=== PATIENT | female | born 1960 | race Caucasian/White ===

== ENCOUNTER 2019-01-02 21:19 | Observation (INO) ==
[2019-01-03] MEDS ORDERED: ZOFRAN IV PRN (00:18)
[2019-01-03] MEDS ORDERED: NORCO-7.5 PO PRN (00:18)
[2019-01-03] MEDS: NS 1,000 ML IV SCH ×2 (00:45→21:53)
[2019-01-03] MEDS: ZOSYN 3.375 GM in NS 50 ML IV SCH ×4 (00:45→18:34)
[2019-01-03] MEDS: XANAX PO PRN ×2 (00:51→21:59)
[2019-01-03] MEDS: COLACE PO SCH ×2 (10:33→21:54)
[2019-01-03] MEDS: MIRALAX PO SCH (10:34)
--- NOTE | 2019-01-03 15:13 | HISTORY AND PHYSICAL ---
PRIMARY CARE PHYSICIAN: Dr. Vance Thurman CHIEF COMPLAINT: Intractable abdominal pain. HISTORY OF PRESENT ILLNESS: A 58-year-old white female with a complicated past medical history presents for evaluation of above mentioned symptoms. Current history of present illness began approximately 1 week ago. At that time, the patient states that she developed profound dizziness with associated nausea. The patient immediately began Zofran secondary to her intractable nausea with some improvement. Subsequently, the patient complained of abdominal discomfort and constipation. The patient suspected this was Zosyn associated. She treated this symptomatically. On Wednesday, the patient developed intractable abdominal discomfort. She took Milk of Magnesia followed by Fleet's enema. Unfortunately, this proved only minimally effective. She did however rapidly develop intractable nausea and vomiting. Throughout the rest of the evening, she was unable to eat. She continued to have lower abdominal cramping. On Wednesday, the patient's condition remained largely unchanged. She was unable to eat adequate diet. She did however achieve improvement in her nausea. Symptoms persisted on Wednesday. Today, the patient awoke and passed what she described as a "normal" stool. Throughout the day, she has continued to have pain, however, this is slightly improved from the weekend. She presented to my office for further evaluation and management. Upon arrival, a full evaluation was pursued. Examination suggested bilateral lower quadrant pain with guarding but no rebound. The patient was referred immediately to the hospital for CT scan evaluation. CT scan returned suggesting diverticulitis, an ovarian cyst versus abscess was identified in the adnexa. Because of the intractable nature of the patient's symptoms as well as the concerning CAT scan, the patient will be admitted to the hospital for full evaluation and management. Of note, the patient has had chills but no fevers. She denies hematochezia, melena, dysuria, hematuria or pyuria. PAST MEDICAL HISTORY: 1. Abnormal electrocardiogram with nonspecific T-wave abnormalities in the lateral leads. 2. Allergic rhinitis. 3. Anxiety. 4. History of cervical dysplasia status post simple vaginectomy in 2005. 5. Cervical spine pain status post diskectomy in 2005. 6. Migraine headaches. 7. Depression. 8. Onychomycosis. 9. Metabolic syndrome. 10. Lower extremity edema. 11. Reflux disease. 12. Hypertriglyceridemia. 13. Excessive daytime somnolence. 14. Hyperlipidemia. 15. Low HDL. 16. Menorrhagia status post CLARIBEL in 2001. 17. Obstructive sleep apnea. 18. Perforated nasal septum. 19. Overweight. 20. Elevated blood pressure without the diagnosis of hypertension. CURRENT MEDICATIONS: 1. Adderall 10 mg twice daily. 2. Alprazolam 0.5 mg twice daily as needed. 3. Claritin 10 mg daily as needed. 4. Flexeril 10 mg 1/2 to 1 tablet 3 times daily as needed. 5. Dyazide 37.5/25 daily as needed. 6. Fenofibrate 160 mg at bedtime. 7. Meloxicam 15 mg daily as needed. 8. Omeprazole 40 mg daily as needed. ALLERGIES: The patient answered no known drug allergies. SOCIAL HISTORY: The patient denies tobacco, alcohol, or illicit drug use. She works for [employer] in [place]. She enjoys movies. She does not exercise routinely. FAMILY HISTORY: The patient's father passed at age 74 secondary to complications of lung cancer. He had a history of an acute myocardial infarction at age 67 and coronary artery bypass grafting at age 69. The patient's mother passed at age 65 with a sudden cardiac . She had a history of diabetes, hypertension, hyperlipidemia, and coronary artery disease. REVIEW OF SYSTEMS: A 12 point Review of Systems was performed. Pertinent positives and negatives noted in history of present illness. PHYSICAL EXAMINATION: VITAL SIGNS: Temperature 98.9, heart rate 94, respirations 16, blood pressure 120/82. GENERAL: A well-developed, well-nourished in no acute distress. HEENT: Normocephalic and atraumatic. Pupils equal round and reactive to light. Extraocular muscles are intact. Sclerae anicteric. [place] conjunctiva. Oral and nasopharynx clear without exudate. NECK: Supple. No lymphadenopathy. No thyromegaly. No bruits auscultated. CARDIOVASCULAR: Regular rate and rhythm. No significant murmurs, rubs or gallops. PULMONARY: Clear to auscultation bilaterally. ABDOMEN: Soft. Diffusely tender more so in bilateral lower quadrants and suprapubic region. Positive guarding with no rebound. Positive bowel sounds. EXTREMITIES: Moves all extremities well. No significant clubbing, cyanosis or edema. NEUROLOGIC: Cranial nerves II through XII grossly intact. Motor and sensory are grossly intact. PSYCHIATRIC: Appropriate. LABORATORY DATA: White blood cell count 11.89, hemoglobin 14.8, hematocrit 45.3, platelet count 207,000. Sodium 139, potassium 4.5, chloride 102, bicarb 24, BUN 12, creatinine 0.9, glucose 109, calcium 9.6. Total bilirubin 0.37. Total protein 7.0, albumin 3.6, alkaline phosphatase 62, AST 18, ALT 22. Preliminary CT scan suggests diverticulitis and indeterminate fluid collections in the adnexa. This likely represents an ovarian cyst, however, diverticular abscess cannot be ruled out. ASSESSMENT AND PLAN: A 58-year-old white female with a Past Medical History as noted. She presents for evaluation of intractable abdominal pain. Because of the severity of the patient's symptoms, the patient was referred for CT scan evaluation confirming diverticulitis, question of possible abscess has been made. The patient will be admitted to the hospital for full evaluation and management of this condition. 1. Admit to General Medicine. 2. Acute diverticulitis. Cannot rule out associated abscess - We will place the patient as an inpatient. We will start Zosyn 3.375 q.6 h. We will initiate IV fluids with normal saline 50 mL an hour. We will encourage soft bowel movements with Colace and MiraLAX therapy. Because of the questionable CT scan, a pelvic ultrasound will be pursued tomorrow to help determine between diverticular abscess and ovarian cyst. 3. Intractable nausea and vomiting - The patient's symptoms are slightly improved from the weekend. We will place the patient on a clear liquid diet. We will add as needed Zofran. We will follow this as well. 4. Anxiety - The patient is treated with alprazolam as an outpatient. We will continue this as an inpatient. 5. Hypertriglyceridemia - The patient's fenofibrate has been held. We will plan to initiate this once indicated. 6. Leukocytosis - This is likely the consequence of patient's acute diverticulitis. We will treat with aggressive antibiotic intervention as above. 7. Fluid electrolytes and nutrition - We will monitor electrolytes, normal saline at 50 mL an hour. Clear liquid diet with NPO after midnight. 8. Prophylaxis: The patient will be placed on SCD's. cc: Vance Thurman MD
--- NOTE | 2019-01-03 17:06 | Diag Imaging Result Doc PS360 ---
EXAM: US PELVIC NON-OB COMPLETE HISTORY: Ovarian cyst vs. Diverticular abscess TECHNIQUE: Transvaginal pelvic ultrasound COMPARISON: CT from 01/02/2019 FINDINGS: The uterus is not identified. There is a large cystic area in the right adnexa measuring 10.5 x 7.6 x 8.6 cm. There is also a large cystic area in the left adnexa measuring 6.8 x 4.2 x 7.2 cm. No definite internal debris. IMPRESSION: Large adnexal fluid collections which are nonspecific but may simply represent large ovarian cysts. Electronically signed by Lambert North 01/03/2019 5:04 PM
[2019-01-03] MEDS ORDERED: LOVENOX SUBQ SCH (21:00)
[2019-01-03] MEDS ORDERED: LOFIBRA PO SCH (21:00)
[2019-01-04] MEDS: ZOSYN 3.375 GM in NS 50 ML IV SCH ×4 (01:21→18:27)
[2019-01-04 06:55] LABS: BASO# 0.01 X1000 (0.0-0.2); BASO% 0.2 % (0.0-0.8); EOS# 0.14 X1000 (0.0-0.7); EOS% 3.2 % (0.0-10.0); HEMATOCRIT 37.1 % (37.0-47.0); HEMOGLOBIN 12.2 g/dL (12.0-16.0); LYMPH% 29.3 % (20.5-51.1); MCH 28.6 PG (27-31); MCHC 32.9 g/dL (33-37); MCV 86.9 FL (81-99); MONO# 0.48 X1000 (0.11-0.59); MONO% 10.8 % (1.7-9.3); MPV 11.6 FL (7.4-10.4); NEUT# 2.51 X1000 (1.4-6.5); NEUT% 56.5 % (42.2-75.2); PLT 221 X1000 (130-400); RBC 4.27 XMIL (4.2-5.4); RDW 12.7 % (11.5-14.5); WBC 4.44 X1000 (4.8-10.8)
[2019-01-04 07:24] LABS: AGAP 7; ALB/GLOB RATIO 1.1; ALBUMIN 3.1 g/dL (3.5-5.0); ALKALINE PHOSPHATASE 50 U/L (32-104); BUN 10 mg/dL (8-22); CALCIUM 8.7 mg/dL (8.8-10.2); CHLORIDE 105 mmol/L (98-107); COSMO 283; CREATININE 0.8 mg/dL (0.5-0.9); ESTIMATED GFR > 60; GLUCOSE 140 mg/dL (70-104); GOT 16 U/L (10-30); GPT 22 U/L (10-36); POTASSIUM 3.9 mmol/L (3.5-5.1); SODIUM 141 mmol/L (136-145); TCO2 29 mmol/L (25-35); TOTAL BILIRUBIN 0.49 mg/dL (0.20-1.00); TOTAL PROTEIN 5.8 g/dL (6.3-8.3)
[2019-01-04] MEDS: COLACE PO SCH (08:35)
[2019-01-04] MEDS: MIRALAX PO SCH (08:35)
[2019-01-04] MEDS ORDERED: PRILOSEC PO SCH (09:00)
--- NOTE | 2019-01-04 12:26 | PROGRESS NOTE ---
DATE: 01/02/2019 SUBJECTIVE: Patient was admitted yesterday with intractable abdominal discomfort. CT scan of the abdomen and pelvis confirmed significant inflammation about the sigmoid colon most compatible with acute diverticulitis. There was, however, bilateral simple, bland appearing fluid collections in the adnexal which were described is very large. The patient was started on IV Zosyn therapy. She remained NPO overnight. This morning, upon my arrival, patient states she rested reasonably well. She continued to have some abdominal discomfort. A pelvic ultrasound was performed today. This revealed large adnexal fluid collection which are nonspecific, but may simply represent large ovarian cyst. This evening, patient was fed a liquid diet. The patient has developed an increasing pain associated with eating. She denies fevers, chills, nausea, vomiting, or shortness of breath. OBJECTIVE: T-max 99.0, heart rate 80 to 92, respirations 16 to 18, blood pressure 104 to 126/55 to 87.General: Well nourished, well developed in no acute distress. Cardiovascular: Regular rate and rhythm. No significant murmurs, rubs, or gallops. Pulmonary: Clear to auscultation bilaterally. Abdomen: Soft. Tender in the left lower quadrant and right lower quadrant with guarding but no rebound. Positive bowel sounds. Extremities: Moves all extremities well. No significant clubbing, cyanosis, or edema. Dermatologic: Evaluation reveals no evidence of rash. LABORATORY DATA: None. ASSESSMENT AND PLAN: 1. Acute diverticulitis-On CT scan, patient was noted to have significant inflammation. There is no evidence of definitive abscess formation. As above, we attempted to allow patient to have liquid diet, but patient experienced increasing pain. For now, we will continue symptomatic management. We will continue IV fluids and IV Zosyn therapy. We will monitor her condition closely while hospitalized. Advance diet as tolerated. 2. Intractable nausea and vomiting-Patient has achieved improvement. She has as-needed Zofran ordered. 3. Anxiety-We will continue patient on alprazolam therapy. Symptoms are reasonably controlled. 4. Hypertriglyceridemia-We will resume patient's fenofibrate. We will follow this as well. 5. Leukocytosis. This likely is secondary to her acute diverticulitis. We will recheck labs in the morning. 6. Adnexal fluid collections/cyst-We will plan evaluation by Dr. Ray as an outpatient. 7. Disposition-At this point, patient continues to require retirement care in a hospital setting. We will plan discharge home once appropriate. cc: Vance Thurman MD
[2019-01-04 15:43] VITALS: BP 105/70
[2019-01-04] MEDS: NS 1,000 ML IV SCH (17:41)
--- NOTE | 2019-01-05 17:06 | DISCHARGE SUMMARY ---
ADMISSION DATE: 01/02/2019 DISCHARGE DATE: 01/04/2019 ADMISSION DIAGNOSIS: Intractable abdominal pain. DISCHARGE DIAGNOSES: 1. Acute diverticulitis, improving. 2. Intractable nausea and vomiting, improving. 3. Adnexal fluid collection/cyst. 4. Anxiety, present on arrival. 5. Hypertriglyceridemia, present on arrival. Leukocytosis, resolved. CONSULTATIONS: None. PROCEDURES: 1. CT scan of the abdomen and pelvis was performed on 01/02/2019 which revealed significant inflammation about the sigmoid colon most compatible with acute diverticulitis. There are bilateral simple, bland appearing fluid collections of the adnexa that are very large. These are indeterminate, but felt more likely to be ovarian cysts than abscesses from the diverticulosis. Followup pelvic ultrasound recommended. Fatty liver. 2. Pelvic ultrasound was performed on 01/03/2019 which revealed large adnexal fluid collections which are nonspecific, but may simply represent large ovarian cysts. HISTORY AND PHYSICAL EXAMINATION: See admit note. PHYSICAL EXAMINATION PRIOR TO DISCHARGE: Vital signs: Temperature 97.9 degrees, heart rate 70, respirations 18, blood pressure is 105/70. General: Well nourished, well developed, no acute distress. Cardiovascular: Regular rate and rhythm. No significant murmurs, rubs, or gallops. Pulmonary: Clear to auscultation bilaterally. Abdomen: Soft, nondistended. Tenderness in the right lower, left lower, and suprapubic regions with guarding, but no rebound and significantly improved from admission. Extremities: Moves all extremities well. No significant clubbing, cyanosis, or edema. Dermatologic: Evaluation reveals no evidence of rash. LABORATORY DATA: Prior to discharge. White blood cell count 4.44, hemoglobin 12.2, hematocrit 37.1, platelet count 221,000. Sodium 141, potassium 3.9, chloride 105, bicarb 29, BUN 10, creatinine 0.8, glucose 140, calcium 8.7, total bilirubin 0.49, total protein 5.8, albumin 3.1, alkaline phosphatase 50, AST 16, ALT 22. HOSPITAL COURSE: The patient was admitted as per history and physical examination. Hospital course per condition is as follows. 1. Acute diverticulitis with intractable abdominal pain-upon admission, patient was noted to have acute symptoms. CT scan confirmed acute diverticulitis. The patient was placed as an inpatient and started on IV fluids and IV antibiotic therapy. She was placed n.p.o. On the day following discharge, pelvic ultrasound was performed as described below to rule out underlying abscess. With this suggesting an abscess was not present, conservative management continue to be pursued. On the day of discharge, patient had achieved improvement, although not resolution of her abdominal discomfort. She was tolerating p.o. With her significant improvement, it was felt transitioning to outpatient therapy was most appropriate. The patient will transition from Zosyn therapy to Cipro and Flagyl. She will complete an additional 12 days. I have encouraged patient to start a low residue diet. She is to aggressively hydrate. Should she have any change in her condition, she is to contact me immediately. 2. Intractable nausea and vomiting-with symptomatic management and treatment of her acute diverticulitis, she achieved improvement. As described above, at present time she is tolerating p.o. 3. Adnexal fluid collection/cysts-as above, initial CT scan demonstrated indeterminate fluid collections, but could not rule out underlying abscess. Pelvic ultrasound suggests these to be adnexal/ovarian cyst. We will ask patient to follow up with Dr. Siegel as an outpatient. 4. Leukocytosis-upon admission, patient was noted to have a leukocytosis associated with her diverticulitis. On the day of discharge, white blood cell count had normalized. We will follow this as well. 5. Anxiety-patient was maintained on Xanax therapy while hospitalized. Symptoms are controlled. 6. Hypertriglyceridemia-patient was continued on fenofibrate therapy. DISCHARGE CONDITION: Good. DISPOSITION: Discharge to home. MEDICATIONS: 1. Colace 100 mg twice daily as needed. 2. Flagyl 500 mg every 8 hours for 12 days. 3. MiraLAX 17 g in 8 ounces of juice daily as needed. 4. Ciprofloxacin 500 mg twice daily for 12 days. 5. Fenofibrate 160 mg at bedtime. 6. Adderall 10 mg twice daily. 7. Fiorinal every 8 hours as needed for headaches. 8. Omeprazole 20 mg daily. 9. Xanax 0.5 mg twice daily as needed. 10. Zofran 4 mg every 6 hours as needed. 11. Meclizine 12.5 mg twice daily as needed. 12. Hydrochlorothiazide 12.5 mg daily as needed. FOLLOWUP: The patient is to follow with me in approximately 1 to 2 weeks. The patient is to follow up with Dr. Siegel in 1 to 2 weeks. cc: Vance Thurman MD
== END 2019-01-04 19:06 | disposition home or self-care (01) ==
LOC: INTOOBSV 21:19 → DIRADM 21:19 → 3N 21:25
PROVIDERS: ADMIT Internal Medicine; ATTEND Internal Medicine
CPT/HCPCS: 76856; 80053; 85025; A9270; J1650; J2543; J7030